=== PATIENT | female | born 1990 | race Caucasian/White ===

== ENCOUNTER 2019-09-16 13:37 | Emergency (ER) | payer MEDICAID, OTHER ==
--- NOTE | 2019-09-16 13:42 | ERPHSYRPT ---
- History of Present Illness Time Seen by Provider: 09/16/19 13:42 Source: patient Exam Limitations: no limitations Physician History: 29-year-old female who presents with a 1 day history of left-sided dental pain and swelling of the gums. It is the upper molar region. This morning there was facial swelling present. Patient states that it feels as though the gums are burning in this region. She has not had a fever. Timing/Duration: abrupt onset ENT Location: dental (Left upper gingiva in the region of the molars) Prearrival Treatment: no prearrival treatment Modifying Factors: Improves With: activity Associated Symptoms: facial pain/swelling (Mild left side), tooth pain Allergies/Adverse Reactions: Penicillins Allergy (Mild, Verified 09/16/19 13:53) Home Medications: OLANZapine [Olanzapine] 10 mg PO DAILY 09/16/19 [History] Hx Tetanus, Diphtheria Vaccination/Date Given: No (unknown) Hx Influenza Vaccination/Date Given: No Hx Pneumococcal Vaccination/Date Given: No Travel Risk - International Travel Have you traveled outside of the country in past 3 weeks: No Have you or anyone close to you been diagnosed with or: No Do your reside in a community with a known COVID-19 case?: Yes If Yes where:: [facility] - Coronavirus Screening Has patient experienced Coronavirus symptoms: No - Review of Systems Constitutional: No Symptoms Eyes: No Symptoms Ears, Nose, & Throat: Mouth Pain, Other (Dental pain and gingival pain and swelling. Left upper molar region) Respiratory: No Symptoms Cardiac: No Symptoms Abdominal/Gastrointestinal: No Symptoms Genitourinary Symptoms: No Symptoms Musculoskeletal: No Symptoms Skin: No Symptoms Neurological: No Symptoms Psychological: No Symptoms Endocrine: No Symptoms - Past Medical History Pertinent Past Medical History: No Neurological History: No Pertinent History ENT History: No Pertinent History Cardiac History: No Pertinent History Respiratory History: No Pertinent History Endocrine Medical History: No Pertinent History Musculoskeletal History: No Pertinent History GI Medical History: No Pertinent History History: No Pertinent History Psycho-Social History: No Pertinent History Female Reproductive Disorders: No Pertinent History - Past Surgical History Past Surgical History: Yes Neuro Surgical History: No Pertinent History Cardiac: No Pertinent History Respiratory: No Pertinent History Gastrointestinal: No Pertinent History Genitourinary: No Pertinent History Musculoskeletal: No Pertinent History Female Surgical History: No Pertinent History Other Surgical History: SINUS SURGURY, abcess to right shoulder, right hand surgury - Social History Smoking Status: Current every day smoker How long have you smoked: 7yrs Exposure to second hand smoke: Yes Drug Use: none Patient Lives Alone: No - Nursing Vital Signs Nursing Vital Signs: Initial Vital Signs Temperature 98.9 F 09/16/19 13:45 Pulse Rate 94 H 09/16/19 13:45 Respiratory Rate 16 09/16/19 13:45 Blood Pressure 132/77 09/16/19 13:45 O2 Sat by Pulse Oximetry 98 09/16/19 13:45 Pain Scale Pain Intensity 6 - Physical Exam General Appearance: no apparent distress, alert, anxiety Eye Exam: bilateral eye: normal inspection, PERRL, EOMI, abnormal EOM Ear Exam: bilateral ear: auricle normal Nasal Exam: normal inspection Throat Exam: pharynx normal, dental tenderness (Left upper lower region there is no abscess but there is gingival redness and swelling present. 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, normal mood/affect, nml cerebellar function, nml station & gait Skin Exam: normal color, warm, dry SpO2 Interpretation: normal O2 Delivery: Room Air - Course Nursing assessment & vital signs reviewed: Yes - Progress Progress: unchanged Counseled pt/family regarding: diagnosis, need for follow-up, rad results - Departure Departure Disposition: Home Clinical Impression: Gingivitis, Pain, dental, Left facial swelling Condition: Stable Critical Care Time: No Referrals: ADINA SMART [Primary Care Provider] - Additional Instructions: Rinse your mouth out 2-3 times a day with Listerine or other antiseptic mouthwash. Take your antibiotics as prescribed. Call your dentist tomorrow and make arrangements for of follow-up appointment. Return to the emergency department if your symptoms worsen Prescriptions: Clindamycin HCl 150 mg [Cleocin 150 mg Capsule] 2 cap PO QID #56 capsule
[2019-09-16 13:53] VITALS: BP 132/77; PULSE 94; O2SAT 98
[2019-09-16] MEDS ORDERED: CLEOCIN 150 MG CAPSULE PO ONE (14:16)
[2019-09-16] MEDS ORDERED: CLEOCIN 150 MG CAPSULE ONE (14:18)
== END 2019-09-16 14:22 | disposition home or self-care (01) ==
LOC: ED 13:37
DX: K05.10 Chronic gingivitis, plaque induced (principal); K08.89 Other specified disorders of teeth and supporting structures; R22.0 Localized swelling, mass and lump, head
CPT/HCPCS: 99283; A9270-GY

== ENCOUNTER 2021-05-30 15:19 | Emergency (ER) | payer OTHER ==
[2021-05-30 15:45] VITALS: BP 152/98; PULSE 125; O2SAT 99
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
== END 2021-05-30 17:23 | disposition left against medical advice (07) ==
LOC: ED 15:19
DX: S61.411A Laceration without foreign body of right hand, initial encounter (principal); S51.811A Laceration without foreign body of right forearm, initial encounter; X99.9XXA Assault by unspecified sharp object, initial encounter; R10.30 Lower abdominal pain, unspecified; M54.2 Cervicalgia; Z72.0 Tobacco use
CPT/HCPCS: 99283

== ENCOUNTER 2022-11-11 22:53 | Emergency (ER) | payer OTHER ==
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
[2022-11-11 23:41] VITALS: BP 120/94; PULSE 114; RESP 24; TEMP 98.3; O2SAT 97
== END 2022-11-11 23:15 | disposition home or self-care (01) ==
LOC: ED 22:53
DX: Z02.89 Encounter for other administrative examinations (principal); F22 Delusional disorders; F91.9 Conduct disorder, unspecified
CPT/HCPCS: 99282